=== PATIENT | male | born 1975 | race African-American/Black ===

== ENCOUNTER 2016-12-09 18:00 | Inpatient (IN) | payer OTHER ==
--- NOTE | 2016-12-09 19:44 | PDOC ---
History of Present Illness - General Chief Complaint: Pain, Acute Stated Complaint: LEFT LEG PAIN Time Seen by Provider: 12/09/16 19:32 History Source: Patient Exam Limitations: No Limitations - History of Present Illness Initial Comments: 12/09/16 21:28 Patient is a 41-year-old male with past medical history of brain tumor status post resection, ataxia, chronic cough presents to the emergency department today complaining of left knee pain. Patient states that today without warning he experienced sudden pain in his knee while walking. He states that he fell cause of the pain in his knee and has been unable to ambulate since. He is tried walking with a cane but feels very unsteady. Admits to pain in the knee, cannot bear weight. Denies fevers, chills, nausea, vomiting, and numbness or tingling. Past History - Travel Traveled outside of the country in the last 30 days: No Close contact w/someone who was outside of country & ill: No - Past Medical History Allergies/Adverse Reactions: Allergies Allergy/AdvReac Type Severity Reaction Status Date / Time amoxicillin [Amoxicillin] Allergy Unknown Verified 12/09/16 18:08 iodine Allergy Unknown Verified 12/09/16 18:08 Penicillins Allergy Unknown Verified 12/09/16 18:08 shellfish derived Allergy Verified 12/09/16 18:08 Home Medications: Ambulatory Orders Albuterol Sulfate [Proair Hfa -] 1 - 2 inh PO TID 10/13/14 Cyclobenzaprine HCl [Flexeril] 10 mg PO TID #30 tablet 10/13/14 Fluticasone/Salmeterol [Advair Hfa 45-21 Mcg Inhaler] 1 inh PO DAILY 10/13/14 Montelukast Na [Singulair -] 10 mg PO DAILY 10/13/14 Multivitamins [Multivit ([facility] Formulary)] 1 tab PO DAILY 10/13/14 Omeprazole [Prilosec] 20 mg PO DAILY 10/13/14 Ibuprofen 800 mg PO TID #21 tablet 12/09/16 Celecoxib [Celebrex] 100 mg PO BID #10 capsule 12/12/16 Omeprazole 20 mg PO DAILY #30 capsule. 12/12/16 Oxycodone HCl [Roxicodone -] 5 mg PO Q6H PRN #20 tablet MDD 6 12/12/16 Walker [Ultra-Light Rollator] 1 each ONCE #1 each 12/12/16 Asthma: Yes - Immunization History Immunization Up to Date: Yes - Suicide/Smoking/Psychosocial Hx Anxiety: No Suicidal Ideation: No Smoking History: Never smoked Have you smoked in the past 12 months: No Information on smoking cessation initiated: No Hx Alcohol Use: No Drug/Substance Use Hx: No Substance Use Type: None Review of Systems - Review of Systems Able to Perform ROS?: Yes Is the patient limited Pashto proficient: No Constitutional: No: Chills, Fever, Malaise, Weakness Musculoskeletal: Yes: Joint Pain (L knee), Joint Swelling (L knee) Neurological: Yes: Pre-Existing Deficit (ataxia d/t old brain tumor (s/p removal )). No: Numbness, Paresthesia, Tingling, Weakness All Other Systems: Reviewed and Negative *Physical Exam - Vital Signs Last Vital Signs Temp Pulse Resp BP Pulse Ox 98.2 F 65 20 128/76 96 12/09/16 18:08 12/09/16 18:08 12/09/16 18:08 12/09/16 18:08 12/09/16 18:08 - Physical Exam Comments: 12/09/16 22:04 GENERAL: Well developed, well nourished. Awake and alert. Mild distress, sitting in wheel chair HEENT: Normocephalic, atraumatic. PERRLA, EOMI. No conjunctival pallor. Sclera are non- icteric. Moist mucous membranes. Oropharynx is clear. NECK: CARDIOVASCULAR: Regular rate and rhythm. No murmurs, rubs, or gallops. Distal pulses are 2+ and symmetric. PULMONARY: No evidence of respiratory distress. Lungs clear to auscultation bilaterally. No wheezing, rales or rhonchi. ABDOMINAL: Soft. Non-tender. Non-distended. No rebound or guarding. No organomegaly. Normoactive bowel sounds. MUSCULOSKELETAL L knee with mild swelling to the lateral and medial portions. TTP of the L lateral and medial knee. (+) slight laxity on anterior and posterior draw tests. (-) valgus and varus stress. Negative Holland tests. No bony deformities. ROM intact with L knee. Unable to ambulate on L leg d/t pain. No CVA tenderness. EXTREMITIES: No cyanosis. No clubbing. No edema. No calf tenderness. SKIN: Warm and dry. Normal capillary refill. No rashes. No jaundice. NEUROLOGICAL: Alert, awake, appropriate. Cranial nerves 2-12 intact. No deficits to light touch and temperature in face, upper extremities and lower extremities. No motor deficits in the in face, upper extremities and lower extremities. Normoreflexic in the upper and lower extremities. Normal speech. Toes are down- going bilaterally. Pt reports gait with ataxia to pre-existing condition; however, unable to ambulate d/t knee pain. PSYCHIATRIC: Cooperative. Good eye contact. Appropriate mood and affect. ED Treatment Course - LABORATORY CBC & Chemistry Diagram: 12/10/16 04:55 12/10/16 04:55 Medical Decision Making - Medical Decision Making 12/09/16 20:15 Patient is a 41-year-old male with past medical history of brain tumor status post resection, ataxia, chronic cough presents to the emergency department today complaining of left knee pain. We will order x-ray of the knee at this time to rule out fracture. Will give ibuprofen for pain and elevate the leg. Reevaluate 12/09/16 21:01 Wet read x-ray shows no fracture, normal spacing between the knee joint no evidence of osteoarthritis no avulsion fractures present. Given exam and x-ray findings most likely ligament damage. We'll refer to or so. We'll give knee brace and crutches. 12/09/16 21:26 Patient was tried with crutches however patient is unable to ambulate due to his pre-existing ataxia. He almost fell multiple times in the emergency department with crutches. He states he is unable to use crutches because of his condition. Will admit the patient due to unable to ambulate. Case is discussed with Barbara Madison NP, who will accept the patient in the back for admission. Patient is stable for transfer to the main ED. *DC/Admit/Observation/Transfer Diagnosis at time of Disposition: Unable to bear weight Strain of knee Qualifiers: Encounter type: initial encounter Laterality: left Qualified Code(s): S86.912A - Strain of unspecified muscle(s) and tendon(s) at lower leg level, left leg, initial encounter - Discharge Dispostion Condition at time of disposition: Good Admit: Yes - Prescriptions - Referrals - Patient Instructions
[2016-12-09] MEDS ORDERED: traMADol HCL 50 MG TABLET PO ONE (21:13)
[2016-12-09] MEDS ORDERED: IBUPROFEN 400 MG TABLET (FP) PO ONE (21:15)
[2016-12-09] MEDS: IBUPROFEN 400 MG TABLET (FP) PO ONE ×2 (21:16→21:17)
[2016-12-09] MEDS ORDERED: traMADol HCL 50 MG TABLET ONE (21:18)
[2016-12-09 22:27] LABS: BASOPHIL 0.9 % (0-2.0); EOSINOPHIL 1.7 % (0-4.5); MCH 29.7 pg (25.7-33.7); MCHC 34.1 g/dl (32.0-35.9); MEAN CELL VOLUME 87.2 fl (80-96); MEAN PLT VOLUME 10.4 fl (7.5-11.1); NEUTROPHILS 62.6 % (42.8-82.8); PLATELET COUNT 179 K/MM3 (134-434); RDW 13.8 % (11.9-15.9); WHITE BLOOD COUNT 8.1 K/mm3 (4.0-10.0)
[2016-12-09 22:50] LABS: ALBUMIN 3.9 g/dl (3.4-5.0); ALK PHOS 82 U/L (45-117); ANION GAP 7 (8-16); BILIRUBIN,TOTAL 0.5 mg/dL (0.2-1.0); CALCIUM 8.9 mg/dL (8.5-10.1); CO2 26 mmol/L (21-32); CREATININE 0.8 mg/dL (0.7-1.3); GLUCOSE,RANDOM 78 mg/dL (74-106); SGOT/AST 13 U/L (15-37); SGPT/ALT 18 U/L (12-78); TOT PROT 6.9 g/dl (6.4-8.2)
--- NOTE | 2016-12-09 23:40 | PDOC ---
*Physical Exam - Vital Signs Last Vital Signs Temp Pulse Resp BP Pulse Ox 98.2 F 65 20 128/76 96 12/09/16 18:08 12/09/16 18:08 12/09/16 18:08 12/09/16 18:08 12/09/16 18:08 ED Treatment Course - LABORATORY CBC & Chemistry Diagram: 12/10/16 04:55 12/10/16 04:55 - ADDITIONAL ORDERS Additional order review: Laboratory Results 12/09/16 22:22 Sodium 140 Potassium 3.7 Chloride 107 Carbon Dioxide 26 Anion Gap 7 L BUN 13 Creatinine 0.8 Creat Clearance w eGFR > 60 Random Glucose 78 Calcium 8.9 Total Bilirubin 0.5 AST 13 L ALT 18 Alkaline Phosphatase 82 Total Protein 6.9 Albumin 3.9 12/09/16 22:22 RBC 4.53 MCV 87.2 MCHC 34.1 RDW 13.8 MPV 10.4 Neutrophils % 62.6 Lymphocytes % 29.0 Monocytes % 5.8 Eosinophils % 1.7 Basophils % 0.9 - Medications Given in the ED: ED Medications Discontinued Medications Generic Name Dose Route Start Last Admin Trade Name Anivalq PRN Reason Stop Dose Admin Ibuprofen 800 mg 12/09/16 20:37 12/09/16 21:17 Motrin - PO 12/09/16 20:38 Not Given ONCE ONE Tramadol HCl 50 mg 12/09/16 21:13 12/09/16 21:20 Ultram - PO 12/09/16 21:14 50 mg ONCE ONE Administration Medical Decision Making - Medical Decision Making 12/10/16 01:44 patient for obs placement for PT evaluation and care management for safe discharge home. Patient signed out to Dr. De La O *DC/Admit/Observation/Transfer Diagnosis at time of Disposition: Unable to bear weight Strain of knee Qualifiers: Encounter type: initial encounter Laterality: left Qualified Code(s): S86.912A - Strain of unspecified muscle(s) and tendon(s) at lower leg level, left leg, initial encounter - Discharge Dispostion Condition at time of disposition: Good Admit: Yes - Prescriptions - Patient Instructions
[2016-12-10] MEDS ORDERED: KETOROLAC TROMETHAMINE 30 MG/1 ML VIAL IM ONE (01:43)
[2016-12-10] MEDS ORDERED: KETOROLAC TROMETHAMINE 30 MG/1 ML VIAL ONE (01:50)
[2016-12-10] MEDS ORDERED: ALBUTEROL SO4 18 GM HFA INHALER IH PRN ×3 (02:14→06:45)
--- NOTE | 2016-12-10 02:17 | HP ---
CHIEF COMPLAINT: " Left knee pain" PCP: Dr. Swanson Neurologist: Dr. Blair. HISTORY OF PRESENT ILLNESS: Patient is a 41 year old male with significant past medical history of Afia ataxia, Asthma, Benign brain tumor s/p resection, acid reflux presented to the ED with the chief complaint of left knee pain. As per the patient, he was apparently well until today; while walking back home from the grocery store, he heard a pop followed by severe excruciating pain in the left knee, 10/10 in intensity, felt like the knee was swinging to the left and right. He immediately called him PMD, was asked to get an X-ray of the knee. Patient dragged himself home, pain was unbearable, hence he called EMS and brought in to the ER for further evaluation. He had never experienced this symptoms before. No h/o trauma. Patient mentions that he was diagnosed with Afia Ataxia at age 30. Has been using a cane to walk since 2-3 years, normally wobbles while walking at baseline. Denies chest pain, sob, cough, palpitation, abdominal pain, nausea or vomiting. Bowel/Bladder habit normal. Sleep/Appetite normal. ER course was notable for: (1) Afebrile, hemodynamically stable. (2) X-ray of the knee-official read pending. (3) Tramadol, toradol, Motrin Recent Travel: None PAST MEDICAL HISTORY: Afia ataxia, Asthma, Benign brain tumor s/p resection, acid reflux PAST SURGICAL HISTORY: None Social History: Smoking: Former occasional smoker, quit 10 years ago Alcohol: Drinks socially Drugs: Denies Family History: Unknown Allergies amoxicillin [Amoxicillin] Allergy (Unknown, Verified 12/09/16 18:08) iodine Allergy (Unknown, Verified 12/09/16 18:08) Penicillins Allergy (Unknown, Verified 12/09/16 18:08) shellfish derived Allergy (Verified 12/09/16 18:08) HOME MEDICATIONS: Home Medications Medication Instructions Recorded Albuterol Sulfate [Proair Hfa -] 1 - 2 inh PO TID 10/13/14 Cyclobenzaprine HCl [Flexeril] 10 mg PO TID #30 tablet 10/13/14 Fluticasone/Salmeterol [Advair Hfa 1 inh PO DAILY 10/13/14 45-21 Mcg Inhaler] Montelukast Na [Singulair -] 10 mg PO DAILY 10/13/14 Multivitamins [Multivit ([facility] 1 tab PO DAILY 10/13/14 Formulary)] Omeprazole [Prilosec] 20 mg PO DAILY 10/13/14 Ibuprofen 800 mg PO TID #21 tablet 12/09/16 REVIEW OF SYSTEMS CONSTITUTIONAL: Absent: fever, chills, diaphoresis, generalized weakness, malaise, loss of appetite, weight change HEENT: Absent: rhinorrhea, nasal congestion, throat pain, throat swelling, difficulty swallowing, mouth swelling, ear pain, eye pain, visual changes CARDIOVASCULAR: Absent: chest pain, syncope, palpitations, irregular heart rate, lightheadedness , peripheral edema RESPIRATORY: Absent: cough, shortness of breath, dyspnea with exertion, orthopnea, wheezing, stridor, hemoptysis GASTROINTESTINAL: Absent: abdominal pain, abdominal distension, nausea, vomiting, diarrhea, constipation, melena, hematochezia GENITOURINARY: Absent: dysuria, frequency, urgency, hesitancy, hematuria, flank pain, genital pain MUSCULOSKELETAL: Present: Left knee pain Absent: myalgia, arthralgia, joint swelling, back pain, neck pain SKIN: Absent: rash, itching, pallor HEMATOLOGIC/IMMUNOLOGIC: Absent: easy bleeding, easy bruising, lymphadenopathy, frequent infections ENDOCRINE: Absent: unexplained weight gain, unexplained weight loss, heat intolerance, cold intolerance NEUROLOGIC: Absent: headache, focal weakness or paresthesias, dizziness, unsteady gait, seizure, mental status changes, bladder or bowel incontinence PSYCHIATRIC: Absent: anxiety, depression, suicidal or homicidal ideation, hallucinations. PHYSICAL EXAMINATION GENERAL: Young male, sitting comfortably in bed, Awake, alert, and fully oriented, in no acute distress. HEAD: Normal with no signs of trauma. EYES: EOM intact, no pallor or icterus. EARS, NOSE, THROAT: Ears normal. Moist mucous membranes. NECK: Supple. LUNGS: B/L breath sounds equal, clear to auscultation bilaterally. No wheezes, and no crackles. No accessory muscle use. HEART: Regular rate and rhythm, normal S1 and S2 with soft systolic murmur. ABDOMEN: Soft, nontender, not distended, normoactive bowel sounds, no guarding, no rebound, no masses. No hepatomegaly or splenomegaly. MUSCULOSKELETAL: Normal range of motion at all joints. No bony deformities or tenderness. No CVA tenderness. UPPER EXTREMITIES: 2+ pulses, warm, well-perfused. No cyanosis. No clubbing. No peripheral edema. RIGHT LOWER EXTREMITY: 2+ pulses, warm, well-perfused. No calf tenderness. No peripheral edema. LEFT LOWER EXTREMITY: No rashes ; no erythema or swelling of the left knee; no tenderness on palpation, ROM limited- pain during flexion. NEUROLOGICAL: No facial droop, power 5/5 in all extremities except the left lower ext due to pain; Cranial nerves II-XII intact. Normal speech- occasional stuttering. Gait not observed. PSYCHIATRIC: Cooperative. Good eye contact. Appropriate mood and affect. SKIN: Warm, dry, normal turgor, no rashes or lesions noted, normal capillary refill. ASSESSMENT/PLAN: Patient is a 41 year old male with significant past medical history of Afia ataxia, Asthma, Benign brain tumor s/p resection, acid reflux presented to the ED via EMS with the chief complaint of left knee pain admitted for further evaluation. # Left knee pain- r/o ligament injuries Sudden onset of left knee pain while walking home; felt like swinging of the left knee, no h/o trauma X-ray of left knee- official read pending Would consider MRI of the left knee to r/o ligament injuries. Orthopedics consult request Continue knee braces Its difficult for him to walk at home as he has multiple stairs, unable to use clutches due to ataxic gait as per the patient. Physical therapy # Asymptomatic bradycardia On admission, patients heart rate was 60-65 bpm. When patient was transferred from ER to [facility], he was found to be bradycardic to 40's. Patient denied chest pain, sob, cough, palpitation. Stat EKG was done which showed HR of 38, sinus bradycardia. After half an hour, he started complaining of chest pain, centrally located, 3/10 in intensity, non radiating. Plan: Stat troponins----> x1 negative, ECHO in the morning; Atropine if needed Continuous cardiac monitoring Needs a pacer at bed side Would consider a full cardiac work up, might need Pacer placement. [facility] but [facility] hence transferring the patient to ICU for close monitoring. # Asthma- not in exacerbation Saturation normal in RA Continue Albuterol, singulair # Afia ataxia at baseline # Acid reflux Continue omeprazole # FEN Not on any IV fluids, can tolerate PO. Electrolytes WNL Regular diet # Prophylaxis For DVT: On Heparin sq For GI: On Omeprazole # Code Status: Full Code # Dispo: Admitted in Med-Surg, Transfer to ICU. Duration of stay unknown. Illness, Investigation and Plan of care explained to the patient. He verbalized understanding. Case discussed with Dr. De La O. Visit type - Emergency Visit Emergency Visit: Yes ED Registration Date: 12/09/16 Care time: The patient presented to the Emergency Department on the above date and was hospitalized for further evaluation of their emergent condition. - New Patient This patient is new to me today: Yes Date on this admission: 12/09/16 - Critical Care Critical Care patient: No
[2016-12-10 04:08] VITALS: BMI 25.8
[2016-12-10 05:17] LABS: MCH 29.7 pg (25.7-33.7); MEAN CELL VOLUME 87.2 fl (80-96); MEAN PLT VOLUME 10.7 fl (7.5-11.1); PLATELET COUNT 160 K/MM3 (134-434); RDW 13.6 % (11.9-15.9)
[2016-12-10 05:41] LABS: ANION GAP 5 (8-16); CALCIUM 8.4 mg/dL (8.5-10.1); CO2 28 mmol/L (21-32); CREATININE 0.7 mg/dL (0.7-1.3); GLUCOSE,RANDOM 93 mg/dL (74-106); MAGNESIUM 2.2 mg/dL (1.8-2.4); PHOSPHOROUS 3.4 mg/dL (2.5-4.9)
[2016-12-10 05:43] LABS: CPK 287 IU/L (39-308); TROPONIN I < 0.02 ng/ml (0.00-0.05)
--- NOTE | 2016-12-10 05:46 | PN ---
Teaching Attending Note Name of Resident: Chloe Lacy ATTENDING PHYSICIAN STATEMENT I saw and evaluated the patient. I reviewed the resident's note and discussed the case with the resident. I agree with the resident's findings and plan as documented. 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 His knee became unstable. He was told by his PMD to come to ED to get an XR . Workup was negative but patient was not able to ambulate and was referred to medical team . Further questioning reveals that he is having mild sub sternal pressure x 3 hrs , no nausea, no vomiting , no prior episodes of chest pain . VS reveal sinus bradycardia @ 40 PMH : Friedrichs ataxia ( per records ) Asthma Benign brain tumor s/p resection? ( per patient ) acid reflux OBJECTIVE: Vital Signs Temperature 97.7 F 12/10/16 03:00 Pulse Rate 42 L 12/10/16 03:00 Respiratory Rate 16 12/10/16 03:00 Blood Pressure 125/77 12/10/16 03:00 O2 Sat by Pulse Oximetry (%) 100 12/10/16 03:00 LUNGS: B/L breath sounds equal, clear to auscultation bilaterally. No wheezes, and no crackles. No accessory muscle use. HEART: Regular rate and rhythm, normal S1 and S2 with soft systolic murmur. ABDOMEN: Soft, nontender, not distended, normoactive bowel sounds, no guarding, no rebound, no masses. No hepatomegaly or splenomegaly. MUSCULOSKELETAL: Normal range of motion at all joints. No bony deformities or tenderness. No CVA tenderness. UPPER EXTREMITIES: 2+ pulses, warm, well-perfused. No cyanosis. No clubbing. No peripheral edema. RIGHT LOWER EXTREMITY: 2+ pulses, warm, well-perfused. No calf tenderness. No peripheral edema. LEFT LOWER EXTREMITY: No rashes ; no erythema or swelling of the left knee; no tenderness on palpation, ROM limited- pain during flexion. NEUROLOGICAL: No facial droop, power 5/5 in all extremities except the left lower ext due to pain; Cranial nerves II-XII intact. Normal speech- occasional stuttering. Gait not observed. CBC, BMP 12/10/16 04:55 12/10/16 04:55 EKG - sinus bradycardia @ 38 ASSESSMENT AND PLAN: 1. Sinus Bradycardia - asymptomatic , however reports mild chest pressure now, this could be associated with underlying cardiomyopathy. - telemetry monitoring stat -bedside pacer and atropine - ECHO - cardiology evaluation 2. Left knee pain - possible ligamental injury , -will obtain PT/OT -imaging if remains non ambulatory 3. Chronic ataxia - progressive - PT/OT Will admit as an inpatient .
[2016-12-10] MEDS ORDERED: CYCLOBENZAPRINE HCL 10 MG TABLET (FP) PO SCH (06:00)
[2016-12-10] MEDS ORDERED: ATROPINE SULFATE 1 MG/10 ML DISP.SYRIN ONE (07:27)
--- NOTE | 2016-12-10 08:20 | PN ---
Physical Exam: SUBJECTIVE: Patient seen and examined by me this AM - Complaining of intermittent chest pain, drowsiness. No SOB, fever, cough, palpitations, LE edema, N/V, dysuria, constipation. Denies any other pain in other joints, rashes. - Informed his clinical data manager, Dr. Clemons, of his admission. - Pt denies ever being admitted to hospital for heart condition - Plan for transfer to med-surg floors for further management today. - HypoK in AM. Replete PO. OBJECTIVE: Vital Signs Intake & Output 12/07/16 12/08/16 12/09/16 12/10/16 23:59 23:59 23:59 23:59 Weight 88.451 kg 79.424 kg Period Temp Pulse Resp BP Sys/Kahn Pulse Ox Last 24 Hr 97.8 F 41 18 134/90 GENERAL: The patient is awake, alert, and fully oriented, in no acute distress. Drowsy. HEAD: Normal with no signs of trauma. EYES: PERRL, extraocular movements intact, sclera anicteric, conjunctiva clear. No ptosis. NECK: Trachea midline LUNGS: Breath sounds equal, clear to auscultation bilaterally, no wheezes, no crackles HEART: Distant heart sounds, bradycardia, S1, S2 without murmur, rub or gallop. ABDOMEN: Soft, nontender, nondistended, normoactive bowel sounds, no guarding, no rebound, no hepatosplenomegaly, no masses. EXTREMITIES: 2+ pulses, warm, well-perfused, no edema. NEUROLOGICAL: Cranial nerves II through XII grossly intact. Normal speech, occasional stuttering MSK: Limited motion at L knee joint. Immobilized with brace. Pain with movement per pt. No other joint pain. Skin: No rashes noted. Laboratory Results - last 24 hr CBCD CBC, BMP 12/10/16 04:55 12/10/16 04:55 WBC 7.0 K/mm3 (4.0-10.0) 12/10/16 04:55 RBC 4.22 M/mm3 (4.00-5.60) 12/10/16 04:55 Hgb 12.5 GM/dL (11.7-16.9) 12/10/16 04:55 Hct 36.8 % (35.4-49) 12/10/16 04:55 MCV 87.2 fl (80-96) 12/10/16 04:55 MCHC 34.0 g/dl (32.0-35.9) 12/10/16 04:55 RDW 13.6 % (11.9-15.9) 12/10/16 04:55 Plt Count 160 K/MM3 (134-434) 12/10/16 04:55 MPV 10.7 fl (7.5-11.1) 12/10/16 04:55 CMP Sodium 141 mmol/L (136-145) 12/10/16 04:55 Potassium 3.5 mmol/L (3.5-5.1) 12/10/16 04:55 Chloride 108 mmol/L (98-107) H 12/10/16 04:55 Carbon Dioxide 28 mmol/L (21-32) 12/10/16 04:55 Anion Gap 5 (8-16) L 12/10/16 04:55 BUN 13 mg/dL (7-18) 12/10/16 04:55 Creatinine 0.7 mg/dL (0.7-1.3) 12/10/16 04:55 Creat Clearance w eGFR > 60 (>60) 12/09/16 22:22 Calcium 8.4 mg/dL (8.5-10.1) L 12/10/16 04:55 Total Bilirubin 0.5 mg/dL (0.2-1.0) 12/09/16 22:22 AST 13 U/L (15-37) L 12/09/16 22:22 ALT 18 U/L (12-78) 12/09/16 22:22 Alkaline Phosphatase 82 U/L (45-117) 12/09/16 22:22 Total Protein 6.9 g/dl (6.4-8.2) 12/09/16 22:22 Albumin 3.9 g/dl (3.4-5.0) 12/09/16 22:22 12/09/16 12/09/16 12/10/16 22:22 22:22 04:55 WBC 8.1 7.0 RBC 4.53 4.22 Hgb 13.5 12.5 Hct 39.5 36.8 MCV 87.2 87.2 MCH 29.7 29.7 MCHC 34.1 34.0 RDW 13.8 13.6 Plt Count 179 160 MPV 10.4 10.7 Neutrophils % 62.6 Lymphocytes % 29.0 Monocytes % 5.8 Eosinophils % 1.7 Basophils % 0.9 Sodium 140 Potassium 3.7 Chloride 107 Carbon Dioxide 26 Anion Gap 7 L BUN 13 Creatinine 0.8 Creat Clearance w eGFR > 60 Random Glucose 78 Calcium 8.9 Phosphorus Magnesium Total Bilirubin 0.5 AST 13 L ALT 18 Alkaline Phosphatase 82 Creatine Kinase Creatine Kinase Index CK-MB (CK-2) Troponin I Total Protein 6.9 Albumin 3.9 12/10/16 04:55 WBC RBC Hgb Hct MCV MCH MCHC RDW Plt Count MPV Neutrophils % Lymphocytes % Monocytes % Eosinophils % Basophils % Sodium 141 Potassium 3.5 Chloride 108 H Carbon Dioxide 28 Anion Gap 5 L BUN 13 Creatinine 0.7 Creat Clearance w eGFR Random Glucose 93 Calcium 8.4 L Phosphorus 3.4 Magnesium 2.2 Total Bilirubin AST ALT Alkaline Phosphatase Creatine Kinase 287 Creatine Kinase Index 0.3 CK-MB (CK-2) < 1.000 Troponin I < 0.02 Total Protein Albumin Active Medications Generic Name Dose Route Start Last Admin Trade Name Freq PRN Reason Stop Dose Admin Albuterol Sulfate 1 puff 12/10/16 06:45 Ventolin Hfa Inhaler - IH Q8H PRN SHORT OF BREATH/WHEEZING Cyclobenzaprine HCl 10 mg 12/10/16 14:00 Flexeril - PO TID [facility] Heparin Sodium (Porcine) 5,000 unit 12/10/16 10:00 Heparin - SQ Q8H-IV JERI Montelukast Sodium 10 mg 12/10/16 10:00 Singulair - PO DAILY [facility] Multivitamins/Minerals/Vitamin C 1 tab 12/10/16 10:00 Tab-A-Vit - PO DAILY JERI Non-Formulary Medication 1 inh 12/10/16 10:00 Fluticasone/Salmeterol [Advair Hfa 45-21 Mcg Inhaler] PO DAILY [facility] Non-Formulary Medication 20 mg 12/10/16 10:00 Omeprazole Pediatric Solution PO DAILY JERI CXR: (12/10) - There is no evidence of airspace consolidation, pulmonary vascular congestion or pleural effusion. There is no definable pneumothorax. Normal size and contour of the cardiomediastinal silhouette. No abnormal deviation of the trachea. Knee XR (12/09) - No gross bone or soft tissue abnormality seen. ASSESSMENT/PLAN: PT is 41 yo m w/ PMH of Freidrich's ataxia, asthma, s/p resection of benign brain tumor who presented to ED w/ new onset 10/10 joint pain in left knee, now found to be bradycardic to 40s in ER, transferred to ICU due to no telemetry beds available. Trops, CK-MB negative to date, EKG w/ sinus bradycardia. Dr. Clemons contact regarding pt cardiology records; stated he would call back once he reviewed patient's chart. Bradycardia possibly due to high-dose of home flexeril dose (10mg TID), as has been noted to cause bradycardia, also consistent w/ patient's drowsiness. Plan for transfer to med-surg floors today , w/ pending ortho consult. #Neuro - Consider holding/decreasing home flexeril - Pain control PO - Consider u-tox #Cardiac - Dr. Clemons contact for prior cardiac hx, ekg - Repeat EKG ordered - Trops x2 negative, CK-mb neg - Cardiology consult - Echo unremarkable #Pulm -O2 2L NC PRN. Titrate to >94% - Continue home albuterol, singulair #MSK - Ortho consult - Knee brace - PT eval GI - Continue home PPI for GERD #FEN -Fluids: PO fluids -Electrolytes: Daily BMPs, Trend BUN/Cr -Nutrition: Renal diet #PPX -SubQ Heparin for DVT ppx -PPI for GI ppx #Dispo - Transfer to med-surg today for further management. Thierry Santamaria, PGY1 Plan discussed with attending, Dr. Sterling Visit type - Emergency Visit Emergency Visit: No - New Patient This patient is new to me today: Yes Date on this admission: 12/10/16 - Critical Care Critical Care patient: No Total Critical Care Time (in minutes): 25
[2016-12-10 09:15] LABS: THYROID STIMULATING HORMONE 0.86 uIU/ml (0.358-3.74)
--- NOTE | 2016-12-10 09:37 | EKG ---
Test Reason : Blood Pressure : / mmHG Vent. Rate : 038 BPM Atrial Rate : 038 BPM P-R Int : 178 ms QRS Dur : 104 ms QT Int : 450 ms P-R-T Axes : 067 052 037 degrees QTc Int : 357 ms MARKED SINUS BRADYCARDIA NONSPECIFIC ST ABNORMALITY ABNORMAL ECG NO PREVIOUS ECGS AVAILABLE Confirmed by ALDO MICHAELS MD ([id number]) on 12/10/2016 9:36:53 AM Referred By: Confirmed By:ALDO MICHAELS MD
[2016-12-10] MEDS ORDERED: PATIENT'S OWN MEDICATION (NON-FORMULARY) (Fluticasone/Salmeterol [Advair Hfa 45-21 Mcg Inh PO SCH (10:00)
[2016-12-10] MEDS ORDERED: HEPARIN NA (PORCINE) 5,000 UNITS/ML 1ML VIAL SQ SCH (10:00)
[2016-12-10] MEDS ORDERED: MONTELUKAST NA 10 MG TABLET PO SCH (10:00)
[2016-12-10] MEDS ORDERED: MULTIVITAMINS (DAILY MVI) TABLET (FP) PO SCH (10:00)
[2016-12-10] MEDS ORDERED: PATIENT'S OWN MEDICATION (NON-FORMULARY) (Omeprazole Pediatric Solution 20 MG) PO SCH (10:00)
[2016-12-10] MEDS: MULTIVITAMINS (DAILY MVI) TABLET (FP) PO SCH (10:48)
[2016-12-10] MEDS: HEPARIN NA (PORCINE) 5,000 UNITS/ML 1ML VIAL SQ SCH ×2 (10:48→17:26)
[2016-12-10] MEDS: MONTELUKAST NA 10 MG TABLET PO SCH (10:48)
--- NOTE | 2016-12-10 11:15 | CON.CARD ---
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 Pt came to ER for cp. While here found to have sinus kaylene so admitted to tele. Pt denies hx hrt dz. Does not recall being told of slow hr in past. He ambulates with cane due to ataxia but denies any sob/cp/fatigue limiting factors. No cp, sob, palps, dizzy , loc, pnd, orthopnea, le edema. pmh: per hpi psh: nc social: ex tob fam: no premature cad, scd ros: per hpi; no nvd, cough, mazariegos, vision changes, gib, hematuria, dysuria, wt loss meds: Home Medications Medication Instructions Recorded Albuterol Sulfate [Proair Hfa -] 1 - 2 inh PO TID 10/13/14 Cyclobenzaprine HCl [Flexeril] 10 mg PO TID #30 tablet 10/13/14 Fluticasone/Salmeterol [Advair Hfa 1 inh PO DAILY 10/13/14 45-21 Mcg Inhaler] Montelukast Na [Singulair -] 10 mg PO DAILY 10/13/14 Multivitamins [Multivit ([facility] 1 tab PO DAILY 10/13/14 Formulary)] Omeprazole [Prilosec] 20 mg PO DAILY 10/13/14 Ibuprofen 800 mg PO TID #21 tablet 12/09/16 pe: Vital Signs Period Temp Pulse Resp BP Sys/Kahn Pulse Ox Last 24 Hr 97.7 F-98.2 F 41-65 16-20 120-146/76-96 96-100 nad no jvd rrr s1s2 no mrg cta bl nl eff aaox3 no le e/c/c abd nt nd pos bs no jaundice diaphoresis pos dp pt no carotid bruits Laboratory Last Values WBC 7.0 K/mm3 (4.0-10.0) 12/10/16 04:55 RBC 4.22 M/mm3 (4.00-5.60) 12/10/16 04:55 Hgb 12.5 GM/dL (11.7-16.9) 12/10/16 04:55 Hct 36.8 % (35.4-49) 12/10/16 04:55 MCV 87.2 fl (80-96) 12/10/16 04:55 MCH 29.7 pg (25.7-33.7) 12/10/16 04:55 MCHC 34.0 g/dl (32.0-35.9) 12/10/16 04:55 RDW 13.6 % (11.9-15.9) 12/10/16 04:55 Plt Count 160 K/MM3 (134-434) 12/10/16 04:55 MPV 10.7 fl (7.5-11.1) 12/10/16 04:55 Neutrophils % 62.6 % (42.8-82.8) 12/09/16 22:22 Lymphocytes % 29.0 % (8-40) 12/09/16 22:22 Monocytes % 5.8 % (3.8-10.2) 12/09/16 22:22 Eosinophils % 1.7 % (0-4.5) 12/09/16 22:22 Basophils % 0.9 % (0-2.0) 12/09/16 22:22 Sodium 141 mmol/L (136-145) 12/10/16 04:55 Potassium 3.5 mmol/L (3.5-5.1) 12/10/16 04:55 Chloride 108 mmol/L (98-107) H 12/10/16 04:55 Carbon Dioxide 28 mmol/L (21-32) 12/10/16 04:55 Anion Gap 5 (8-16) L 12/10/16 04:55 BUN 13 mg/dL (7-18) 12/10/16 04:55 Creatinine 0.7 mg/dL (0.7-1.3) 12/10/16 04:55 Creat Clearance w eGFR > 60 (>60) 12/09/16 22:22 Random Glucose 93 mg/dL (74-106) 12/10/16 04:55 Hemoglobin A1c % 5.2 % (4.8-6.0) 12/10/16 07:00 Calcium 8.4 mg/dL (8.5-10.1) L 12/10/16 04:55 Phosphorus 3.4 mg/dL (2.5-4.9) 12/10/16 04:55 Magnesium 2.2 mg/dL (1.8-2.4) 12/10/16 04:55 Total Bilirubin 0.5 mg/dL (0.2-1.0) 12/09/16 22:22 AST 13 U/L (15-37) L 12/09/16 22:22 ALT 18 U/L (12-78) 12/09/16 22:22 Alkaline Phosphatase 82 U/L (45-117) 12/09/16 22:22 Creatine Kinase 287 IU/L (39-308) 12/10/16 04:55 Creatine Kinase Index 0.3 % (0.0-5.0) 12/10/16 04:55 CK-MB (CK-2) < 1.000 ng/mL (0.5-3.6) 12/10/16 04:55 Troponin I < 0.02 ng/ml (0.00-0.05) 12/10/16 04:55 Total Protein 6.9 g/dl (6.4-8.2) 12/09/16 22:22 Albumin 3.9 g/dl (3.4-5.0) 12/09/16 22:22 TSH Cancelled 12/10/16 08:20 tele: sinus kaylene in 40s, no pathologic bradyarrhythmias or pauses ecg 12/10/16: sr 38, nl intervals, no ischemic changes cxr: clear lungs a/p: 41 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 sinus bradycardia: -appears to be asymptomatic sinus kaylene -tsh wnl -no pathologic bradyarrhythmias or pauses on tele -can check echo -given his ataxia/cane ambulation would be difficult to assess chronotropic response with ETT, however with minimal exercise in bed his HR quickly rises to 60s so likely has adequate HR response to exercise -avoid meds that cause bradycardia
[2016-12-10 12:56] LABS: CPK 295 IU/L (39-308); TROPONIN I < 0.02 ng/ml (0.00-0.05)
[2016-12-10] MEDS ORDERED: ALBUTEROL SO4 0.083% IH SOL 2.5 MG/3 ML VIAL.NEB. NEB PRN (13:02)
--- NOTE | 2016-12-10 13:42 | PN ---
Teaching Attending Note Name of Resident: Thierry Santamaria ATTENDING PHYSICIAN STATEMENT I saw and evaluated the patient. I reviewed the resident's note and discussed the case with the resident. I agree with the resident's findings and plan as documented. SUBJECTIVE: Patient seen and examined in the ICU. Awake and alert. Denies CP or SOB. Still with some discomfort in the Right knee (xray is normal). Intake & Output 12/07/16 12/08/16 12/09/16 12/10/16 23:59 23:59 23:59 23:59 Weight 195 lb 175 lb 1.6 oz Last Vital Signs Temp Pulse Resp BP Pulse Ox 97.9 F 45 L 16 121/85 100 12/10/16 10:00 12/10/16 12:20 12/10/16 12:20 12/10/16 12:20 12/10/16 03:00 Active Medications Albuterol Sulfate (Ventolin 0.083% Nebulizer Soln -) 1 amp NEB Q8H PRN PRN Reason: SHORT OF BREATH/WHEEZING Cyclobenzaprine HCl (Flexeril -) 10 mg PO TID JERI Heparin Sodium (Porcine) (Heparin -) 5,000 unit SQ Q8H-IV JERI Last Admin: 12/10/16 10:48 Dose: 5,000 unit Montelukast Sodium (Singulair -) 10 mg PO DAILY JERI Last Admin: 12/10/16 10:48 Dose: 10 mg Multivitamins/Minerals/Vitamin C (Tab-A-Vit -) 1 tab PO DAILY JERI Last Admin: 12/10/16 10:48 Dose: 1 tab Non-Formulary Medication (Fluticasone/Salmeterol [Advair Hfa 45-21 Mcg Inhaler] ) 1 inh PO DAILY JERI Non-Formulary Medication (Omeprazole Pediatric Solution) 20 mg PO DAILY JERI GENERAL: Awake, alert, and fully oriented, NAD HEAD: Normal with no signs of trauma. EYES: EOM intact, no pallor or icterus. EARS, NOSE, THROAT: Ears normal. Moist mucous membranes. NECK: Supple. LUNGS: Clear. No wheezes, and no crackles. No accessory muscle use. HEART: Regular rate and rhythm, normal S1 and S2 with soft systolic murmur. ABDOMEN: Soft, nontender, not distended, normoactive bowel sounds, no guarding, no rebound, no masses. No hepatomegaly or splenomegaly. MUSCULOSKELETAL: Normal range of motion at all joints. No bony deformities or tenderness. No CVA tenderness. UPPER EXTREMITIES: 2+ pulses, warm, well-perfused. No cyanosis. No clubbing. No peripheral edema. RIGHT LOWER EXTREMITY: 2+ pulses, warm, well-perfused. No calf tenderness. No peripheral edema. LEFT LOWER EXTREMITY: No rashes ; no erythema or swelling of the left knee; no tenderness on palpation, ROM limited- pain during flexion. NEUROLOGICAL: Non-focal, Normal speech- occasional stuttering. Gait not observed. PSYCHIATRIC: Cooperative. Good eye contact. Appropriate mood and affect. SKIN: Warm, dry, normal turgor, no rashes or lesions noted, normal capillary refill. Laboratory Results - last 24 hr 12/09/16 12/09/16 12/10/16 22:22 22:22 04:55 WBC 8.1 7.0 RBC 4.53 4.22 Hgb 13.5 12.5 Hct 39.5 36.8 MCV 87.2 87.2 MCH 29.7 29.7 MCHC 34.1 34.0 RDW 13.8 13.6 Plt Count 179 160 MPV 10.4 10.7 Neutrophils % 62.6 Lymphocytes % 29.0 Monocytes % 5.8 Eosinophils % 1.7 Basophils % 0.9 Sodium 140 Potassium 3.7 Chloride 107 Carbon Dioxide 26 Anion Gap 7 L BUN 13 Creatinine 0.8 Creat Clearance w eGFR > 60 Random Glucose 78 Hemoglobin A1c % Calcium 8.9 Phosphorus Magnesium Total Bilirubin 0.5 AST 13 L ALT 18 Alkaline Phosphatase 82 Creatine Kinase Creatine Kinase Index CK-MB (CK-2) Troponin I Total Protein 6.9 Albumin 3.9 TSH 12/10/16 12/10/16 12/10/16 04:55 07:00 08:20 WBC RBC Hgb Hct MCV MCH MCHC RDW Plt Count MPV Neutrophils % Lymphocytes % Monocytes % Eosinophils % Basophils % Sodium 141 Potassium 3.5 Chloride 108 H Carbon Dioxide 28 Anion Gap 5 L BUN 13 Creatinine 0.7 Creat Clearance w eGFR Random Glucose 93 Hemoglobin A1c % 5.2 Calcium 8.4 L Phosphorus 3.4 Magnesium 2.2 Total Bilirubin AST ALT Alkaline Phosphatase Creatine Kinase 287 Creatine Kinase Index 0.3 CK-MB (CK-2) < 1.000 Troponin I < 0.02 Total Protein Albumin TSH 0.86 Cancelled 12/10/16 12/10/16 12:00 12:00 WBC RBC Hgb Hct MCV MCH MCHC RDW Plt Count MPV Neutrophils % Lymphocytes % Monocytes % Eosinophils % Basophils % Sodium Potassium Chloride Carbon Dioxide Anion Gap BUN Creatinine Creat Clearance w eGFR Random Glucose Hemoglobin A1c % Calcium Phosphorus Magnesium Total Bilirubin AST ALT Alkaline Phosphatase Creatine Kinase 295 Creatine Kinase Index 0.3 CK-MB (CK-2) < 1.000 Troponin I < 0.02 Cancelled Total Protein Albumin TSH IMP: Asymptomatic Bradycardia -> (?) related to Flexeril Asthma Afia Ataxia GERD PLAN: Cardiology consult O2 as needed Pain control PO as tolerated Get old EKG from chef kitchen manager office Dr Sterling Critical care time spent in reviewing chart, evaluating patient and formulating plan - 35 minutes.
--- NOTE | 2016-12-10 13:48 | PN ---
Physical Exam: SUBJECTIVE: Patient seen and examined at bedside. Patient has no new complaints and is resting comfortably in bed. OBJECTIVE: Vital Signs Period Temp Pulse Resp BP Sys/Kahn Pulse Ox Last 24 Hr 97.8 F-97.9 F 41-52 16-18 121-146/85-96 GENERAL: The patient is awake, alert, and fully oriented, in no acute distress. HEAD: Normal with no signs of trauma. EYES: extraocular movements intact, sclera anicteric, conjunctiva clear. No ptosis. NECK: Trachea midline, full range of motion, supple. LUNGS: Breath sounds equal, clear to auscultation bilaterally, no wheezes, no crackles, no accessory muscle use. HEART: Bradycardic, Regular rhythm, S1, S2 without murmur, rub or gallop. ABDOMEN: Soft, nontender, nondistended, normoactive bowel sounds, no guarding, no rebound. EXTREMITIES: 2+ pulses, warm, well-perfused, no edema. NEUROLOGICAL: Cranial nerves II through X grossly intact. Normal speech, gait not observed. PSYCH: Normal mood, normal affect. SKIN: Warm, dry, normal turgor, no rashes or lesions noted Laboratory Results - last 24 hr 12/10/16 12/10/16 12/10/16 07:00 08:20 12:00 Hemoglobin A1c % 5.2 Creatine Kinase 295 Troponin I < 0.02 TSH Cancelled 12/10/16 12:00 Hemoglobin A1c % Creatine Kinase Troponin I Cancelled TSH Active Medications Generic Name Dose Route Start Last Admin Trade Name Freq PRN Reason Stop Dose Admin Albuterol Sulfate 1 amp 12/10/16 13:02 Ventolin 0.083% Nebulizer Soln - NEB Q8H PRN SHORT OF BREATH/WHEEZING Cyclobenzaprine HCl 10 mg 12/10/16 14:00 Flexeril - PO TID JERI Heparin Sodium (Porcine) 5,000 unit 12/10/16 10:00 12/10/16 10:48 Heparin - SQ 5,000 unit Q8H-IV JERI Administration Montelukast Sodium 10 mg 12/10/16 10:00 12/10/16 10:48 Singulair - PO 10 mg DAILY JERI Administration Multivitamins/Minerals/Vitamin C 1 tab 12/10/16 10:00 12/10/16 10:48 Tab-A-Vit - PO 1 tab DAILY JERI Administration Non-Formulary Medication 1 inh 12/10/16 10:00 Fluticasone/Salmeterol [Advair Hfa 45-21 Mcg Inhaler] PO DAILY JERI Non-Formulary Medication 20 mg 12/10/16 10:00 Omeprazole Pediatric Solution PO DAILY JERI ASSESSMENT/PLAN: Patient is a 41 year old male with significant past medical history of Afia ataxia, Asthma, Benign brain tumor s/p resection, acid reflux presented to the ED via EMS with the chief complaint of left knee pain admitted for further evaluation. # Left knee pain 2/2 sprain vs ligament injury -Patient pain free at rest, pain on left knee flexing. -XR left knee: negative for fracture -Orthopedics consulted -knee brace -physical therapy eval # Asymptomatic bradycardia 2/2 cardiomyopathy vs physiologic baseline -heart rate was 60-65 on admission. -upon transfer to [facility], he was found to be bradycardic to 40's. -Stat EKG shows HR of 38 and sinus kaylene. -chest pain resolved -troponins negative x2 -Atropine PRN symptoms -echo WNL -cardio consult: monitor and avoid meds which cause kaylene -patient meds reviewed; none associated with kaylene -Dr. 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 Blair office contacted for medical records # Acid reflux Continue omeprazole # FEN Not on any IV fluids, can tolerate PO. Electrolytes WNL Regular diet # Prophylaxis -Heparin sq 5kU TID -On home Omeprazole #dispo -patient admitted for ortho consult and bradycardia workup Visit type - Emergency Visit Emergency Visit: Yes ED Registration Date: 12/10/16 Care time: The patient presented to the Emergency Department on the above date and was hospitalized for further evaluation of their emergent condition. - New Patient This patient is new to me today: Yes Date on this admission: 12/10/16 - Critical Care Critical Care patient: Yes Total Critical Care Time (in minutes): 35 Critical Care Statement: The care of this patient involved high complexity decision making to prevent further life threatening deterioration of the patient 's condition and/or to evaluate & treat vital organ system(s) failure or risk of failure.
[2016-12-10] MEDS ORDERED: POTASSIUM CHLORIDE TABS 20 MEQ TABLET.ER (FP) PO ONE (14:15)
--- NOTE | 2016-12-10 14:25 | PN ---
Teaching Attending Note Name of Resident: Fabiano Olsen ATTENDING PHYSICIAN STATEMENT I saw and evaluated the patient. I reviewed the resident's note and discussed the case with the resident. I agree with the resident's findings and plan as documented. SUBJECTIVE:c/o L knee pain which started suddenly. denies falling or trauma to his leg. states he had mild chest pressure in the evening substernal and radiating to the Right of his chest, no assoc symptoms. denies CP, palpitations , dizzyness, blurred vision, lethargy. has never been told he has slow HR. had NMST done 2 years ago for CP and was told it was negative, never followed up with salon assistant after that. OBJECTIVE: Last Vital Signs Temp Pulse Resp BP Pulse Ox 97.7 F 46 L 16 121/85 100 12/10/16 13:49 12/10/16 13:49 12/10/16 13:49 12/10/16 13:49 12/10/16 11:00 General NAD CV S1 S2 slow, no murmur,rub.gallop Lungs CTA B/L no wheezing/rales/rhocnhi Extremites L knee in brace, no effusion, non tender. unable to move it due to brace ASSESSMENT AND PLAN: 41yo M with PMH Friedrichs ataxia, brain tumor s/p resection presented with sudden onset L knee pain and found to be bradycardic 1. Asymptomatic bradycardia- lowest HR on monitor 42. on mild exertion HR increased to 78. no symptoms at all. can likely be due to Friedrichs ataxia. trend cardiac enzymes Q6H. check TSH. echo pending. cardio eval. obtain old EKG to compare and obtain official report of NMST. no intervention likely required 2. L knee pain- concern for torn ligament. unable to ambulate on crutches due to ataxia. awaiting official read on xr. consult ortho for further intervention. may require MRI imaging. cont leg brace. PT eval 3. Friedrichs ataxia 4. Brain tumor s/p resection
[2016-12-10] MEDS: CYCLOBENZAPRINE HCL 10 MG TABLET (FP) PO SCH ×2 (14:59→22:46)
[2016-12-10] MEDS ORDERED: FLU VACCINE QUAD 60 MCG/0.5 ML (MDV 17-18) IM ONE (15:00)
[2016-12-11] MEDS: HEPARIN NA (PORCINE) 5,000 UNITS/ML 1ML VIAL SQ SCH ×3 (01:17→22:20)
[2016-12-11] MEDS: CYCLOBENZAPRINE HCL 10 MG TABLET (FP) PO SCH ×3 (06:17→22:21)
--- NOTE | 2016-12-11 07:56 | PN ---
Teaching Attending Note Name of Resident: Marcelo Lynch ATTENDING PHYSICIAN STATEMENT I saw and evaluated the patient. I reviewed the resident's note and discussed the case with the resident. I agree with the resident's findings and plan as documented. SUBJECTIVE: His knee pain is improved and he understands plan for ortho evaluation today. OBJECTIVE: Last Vital Signs Temp Pulse Resp BP Pulse Ox 98.1 F 51 L 18 119/60 99 12/11/16 06:00 12/11/16 06:00 12/11/16 06:00 12/11/16 06:00 12/10/16 21:00 Exam pending ASSESSMENT AND PLAN: The patient is a 41 year old male with a significant past medical history of Friedrichs ataxia, brain tumor s/p resection, who is HD# 3 for knee strain and asymptomatic bradycardia. # Asymptomatic bradycardia Resting hear rate vincent is mid 40's It increases with exertion Likely be due to Friedrichs ataxia and suspect this is baseline Appreciate cardiology input Will add lyme titers Will verify with his outpatient web content developer TSH was normal TTE was unremarkable Enzymes trended negative # L knee pain Possible ligamentous injury Ortho consult pending # Disposition Anticipate discharge today after ortho consult and verification of chronic bradycardia See resident note for full details
--- NOTE | 2016-12-11 08:35 | PN ---
Progress Note, Physician Chief Complaint: bradycardia History of Present Illness: no dizzy, syncope no cp, sob - Current Medication List Current Medications: Active Medications Albuterol Sulfate (Ventolin 0.083% Nebulizer Soln -) 1 amp NEB Q8H PRN PRN Reason: SHORT OF BREATH/WHEEZING Cyclobenzaprine HCl (Flexeril -) 10 mg PO TID [facility] Last Admin: 12/11/16 06:17 Dose: 10 mg Heparin Sodium (Porcine) (Heparin -) 5,000 unit SQ Q8H-IV JERI Last Admin: 12/11/16 01:17 Dose: 5,000 unit Montelukast Sodium (Singulair -) 10 mg PO DAILY [facility] Last Admin: 12/10/16 10:48 Dose: 10 mg Multivitamins/Minerals/Vitamin C (Tab-A-Vit -) 1 tab PO DAILY [facility] Last Admin: 12/10/16 10:48 Dose: 1 tab Non-Formulary Medication (Fluticasone/Salmeterol [Advair Hfa 45-21 Mcg Inhaler] ) 1 inh PO DAILY [facility] Pantoprazole Sodium (Protonix -) 20 mg PO DAILY [facility] - Objective Vital Signs: Vital Signs Temperature 98.1 F 12/11/16 06:00 Pulse Rate 51 L 12/11/16 06:00 Respiratory Rate 18 12/11/16 06:00 Blood Pressure 119/60 12/11/16 06:00 O2 Sat by Pulse Oximetry (%) 99 12/10/16 21:00 Constitutional: Yes: Well Nourished, No Distress, Calm Cardiovascular: Yes: Regular Rate and Rhythm, S1, S2. No: Gallop, Murmur Respiratory: Yes: Regular, CTA Bilaterally. No: Accessory Muscle Use, Rales, Wheezes Extremities: No: Cold Edema: No Neurological: Yes: Alert. No: Seizure Psychiatric: No: Agitated - ....Imaging EKG: Other (tele: NSR with sinus kaylene briefly 48, mostly 50s-60s) Assessment/Plan ecg 12/10/16: sr 38, nl intervals, no ischemic changes cxr: clear lungs Echo 12/10/16: nl LVSF. nl RV. mild MR/TR a/p: 41 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 sinus bradycardia: -incidentally noted on tele with minimum HR in 38-40s -he has had no sx's attributable to this, and no pathologic bradyarrhythmias or pauses on tele -with minimal exercise in bed his HR quickly rises to 60s, c/w chronotropic competence -echo WNL -TSH normal -check lyme titers (pt denies h/o tick bite) -no ongoing indication for telemetry monitoring in absence of change in sx status--ok for routine VS monitoring on med/surg floor
[2016-12-11] MEDS ORDERED: ACETAMINOPHEN 325 MG TABLET (FP) PO PRN ×2 (09:51→17:48)
[2016-12-11] MEDS ORDERED: oxyCODONE HCL 5 MG TABLET PO PRN ×2 (09:51→17:48)
[2016-12-11] MEDS ORDERED: CELECOXIB 100 MG CAPSULE PO SCH (10:00)
[2016-12-11] MEDS ORDERED: PANTOPRAZOLE 20 MG TABLET (FP) PO SCH ×2 (10:00)
--- NOTE | 2016-12-11 10:01 | PN ---
Physical Exam: SUBJECTIVE: Patient seen and examined at bedside. No events overnight. Patient states that his pain has not improved since admission. no other complaints. OBJECTIVE: Vital Signs Period Temp Pulse Resp BP Sys/Kahn Pulse Ox Last 24 Hr 97.7 F-98.1 F 45-84 16-18 119-149/60-88 98-100 GENERAL: The patient is awake, alert, and fully oriented, in no acute distress. HEAD: Normal with no signs of trauma. EYES: extraocular movements intact, sclera anicteric, conjunctiva clear. No ptosis. NECK: Trachea midline, full range of motion, supple. LUNGS: Breath sounds equal, clear to auscultation bilaterally, no wheezes, no crackles, no accessory muscle use. HEART: Regular rate and rhythm, S1, S2 without murmur, rub or gallop. ABDOMEN: Soft, nontender, nondistended, normoactive bowel sounds, no guarding, no rebound, no hepatosplenomegaly, no masses. EXTREMITIES: 2+ pulses, warm, well-perfused, no edema. NEUROLOGICAL: Cranial nerves II through X grossly intact. Normal speech, gait not observed. PSYCH: Normal mood, normal affect. SKIN: Warm, dry, normal turgor, no rashes or lesions noted Laboratory Results - last 24 hr 12/10/16 12/10/16 12:00 12:00 Creatine Kinase 295 Creatine Kinase Index 0.3 CK-MB (CK-2) < 1.000 Troponin I < 0.02 Cancelled Active Medications Generic Name Dose Route Start Last Admin Trade Name Freq PRN Reason Stop Dose Admin Acetaminophen 325 mg 12/11/16 09:51 Tylenol - PO Q6H PRN PAIN Albuterol Sulfate 1 amp 12/10/16 13:02 Ventolin 0.083% Nebulizer Soln - NEB Q8H PRN SHORT OF BREATH/WHEEZING Celecoxib 100 mg 12/11/16 10:00 Celebrex - PO BID JERI Cyclobenzaprine HCl 10 mg 12/10/16 14:00 12/11/16 06:17 Flexeril - PO 10 mg TID JERI Administration Heparin Sodium (Porcine) 5,000 unit 12/10/16 10:00 12/11/16 01:17 Heparin - SQ 5,000 unit Q8H-IV JERI Administration Montelukast Sodium 10 mg 12/10/16 10:00 12/10/16 10:48 Singulair - PO 10 mg DAILY JERI Administration Multivitamins/Minerals/Vitamin C 1 tab 12/10/16 10:00 12/10/16 10:48 Tab-A-Vit - PO 1 tab DAILY JERI Administration Non-Formulary Medication 1 inh 12/10/16 10:00 Fluticasone/Salmeterol [Advair Hfa 45-21 Mcg Inhaler] PO DAILY JERI Oxycodone HCl 5 mg 12/11/16 09:51 Roxicodone - PO Q6H PRN PAIN Oxycodone/Acetaminophen 1 combo 12/11/16 09:26 Percocet 5/325 - PO Q6H PRN PAIN Pantoprazole Sodium 20 mg 12/11/16 10:00 Protonix - PO BID JERI ASSESSMENT/PLAN: Patient is a 41 year old male with significant past medical history of Afia ataxia, Asthma, Benign brain tumor s/p resection, acid reflux presented to the ED via EMS with the chief complaint of left knee pain admitted for further evaluation. # Left knee pain 2/2 sprain vs ligament injury -Patient pain free at rest, pain on left knee flexing. -XR left knee: negative for fracture -Orthopedics consulted; awaiting recs -knee brace -physical therapy eval -celebrex 100mg BID -percocet Q6 PRN pain # Asymptomatic bradycardia 2/2 cardiomyopathy vs physiologic baseline -heart rate was 60-65 on admission. -upon transfer to Med-Surg, he was found to be bradycardic to 40's. -Stat EKG shows HR of 38 and sinus kaylene. -chest pain resolved -troponins negative x2 -Atropine PRN symptoms -echo WNL -cardio consult: monitor and avoid meds which cause kaylene -patient meds reviewed; none associated with kaylene -Dr. 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 Blair office contacted for medical records # Acid reflux -increase pantoprazole to BID as patient now on celebrex # FEN -No fluids indicated at this time -Electrolytes WNL -Regular diet # Prophylaxis -Heparin sq 5kU TID -Pantoprazole BID #dispo -patient admitted to observation for ortho consult and bradycardia workup. Anticipate possible discharge after ortho eval and cardio clearance. Problem List - Problems (1) Strain of knee Code(s): S86.919A - STRAIN OF UNSP MUSC/TEND AT LOWER LEG LEVEL, UNSP LEG, INIT Qualifiers: Encounter type: initial encounter Laterality: left Qualified Code(s ): S86.912A - Strain of unspecified muscle(s) and tendon(s) at lower leg level, left leg, initial encounter (2) Asthma Code(s): J45.909 - UNSPECIFIED ASTHMA, UNCOMPLICATED (3) Bradycardia Code(s): R00.1 - BRADYCARDIA, UNSPECIFIED (4) Paraparesis of both lower limbs Code(s): G82.20 - PARAPLEGIA, UNSPECIFIED (5) Friedreich ataxia Code(s): G11.1 - EARLY-ONSET CEREBELLAR ATAXIA (6) GERD (gastroesophageal reflux disease) Code(s): K21.9 - GASTRO-ESOPHAGEAL REFLUX DISEASE WITHOUT ESOPHAGITIS Visit type - Emergency Visit Emergency Visit: Yes ED Registration Date: 12/09/16 Care time: The patient presented to the Emergency Department on the above date and was hospitalized for further evaluation of their emergent condition. - New Patient This patient is new to me today: No - Critical Care Critical Care patient: No
[2016-12-11] MEDS ORDERED: PT OWN MED DRAWER 7, Y5N ONE ×3 (11:09→22:11)
[2016-12-11] MEDS: MULTIVITAMINS (DAILY MVI) TABLET (FP) PO SCH (11:17)
[2016-12-11] MEDS: MONTELUKAST NA 10 MG TABLET PO SCH (11:18)
--- NOTE | 2016-12-11 11:34 | CONSULT ---
Consult Consult Specialty:: orthopedics - History of Present Illness Chief Complaint: left knee pain History of Present Illness: 41 y/o male c/o of left knee pain which began 2 days ago while he was walking. He denies any injury or trauma and states the pain began suddenly. He was okay at first and was able to walk home but the pain continued to get worse and he went to the ER where he had an x-ray. He was going to be discharged home but was unable to ambulate safely with crutches and was admitted. 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 He denies any prior injuries or problems with the left knee. The pain is worse with bending and better with rest. No other associated, aggravating or relieving factors. - History Source Limitations to Obtaining History: No Limitations - Alcohol/Substance Use Hx Alcohol Use: No - Smoking History Smoking history: Former smoker Have you smoked in the past 12 months: No If you are a former smoker, when did you quit?: 10 years ago Home Medications - Allergies Allergies/Adverse Reactions: Allergies Allergy/AdvReac Type Severity Reaction Status Date / Time amoxicillin [Amoxicillin] Allergy Unknown Verified 12/09/16 18:08 iodine Allergy Unknown Verified 12/09/16 18:08 Penicillins Allergy Unknown Verified 12/09/16 18:08 shellfish derived Allergy Verified 12/09/16 18:08 - Home Medications Home Medications: Ambulatory Orders Albuterol Sulfate [Proair Hfa -] 1 - 2 inh PO TID 10/13/14 Cyclobenzaprine HCl [Flexeril] 10 mg PO TID #30 tablet 10/13/14 Fluticasone/Salmeterol [Advair Hfa 45-21 Mcg Inhaler] 1 inh PO DAILY 10/13/14 Montelukast Na [Singulair -] 10 mg PO DAILY 10/13/14 Multivitamins [Multivit ([facility] Formulary)] 1 tab PO DAILY 10/13/14 Omeprazole [Prilosec] 20 mg PO DAILY 10/13/14 Ibuprofen 800 mg PO TID #21 tablet 12/09/16 Family Disease History - Family Disease History Family History: Unremarkable Review of Systems - Review of Systems Constitutional: reports: No Symptoms Eyes: reports: No Symptoms HENT: reports: No Symptoms Neck: reports: No Symptoms Cardiovascular: reports: No Symptoms Respiratory: reports: No Symptoms Gastrointestinal: reports: No Symptoms Genitourinary: reports: No Symptoms Breasts: reports: No Symptoms Reported Musculoskeletal: reports: Joint Pain Integumentary: reports: No Symptoms Neurological: reports: No Symptoms Endocrine: reports: No Symptoms Hematology/Lymphatic: reports: No Symptoms Psychiatric: reports: No Symptoms Physical Exam Vital Signs: Vital Signs Temperature 98 F 12/11/16 10:00 Pulse Rate 59 L 12/11/16 10:00 Respiratory Rate 20 12/11/16 10:00 Blood Pressure 121/68 12/11/16 10:00 O2 Sat by Pulse Oximetry (%) 99 12/10/16 21:00 Constitutional: Yes: Well Nourished, No Distress, Calm HENT: Yes: Atraumatic, Normocephalic Musculoskeletal: Yes: Other (Left knee: No open wounds, no erythema, edema or ecchymosis. No sign of infection. There is tenderness over the lateral joint space. No other areas of tenderness. ROM of the knee is -10 degrees to 110 degrees. Smooth ROM of the knee. Pain with mcmurrays test laterally. negative sanjay's test. LCL and MCL stable. NVID.) Labs: CBC, BMP 12/10/16 04:55 12/10/16 04:55 Imaging - Results X-ray: Report Reviewed, Image Reviewed (No fracture/dislocation) Assessment/Plan #1 Left knee sprain, possible meniscus injury -Discussed today's findings and treatment options with the patient. I have recommended an MRI. He is unable to ambulate comfortably with the knee immoblizer but was able to walk with a walker this morning. He may obtain the MRI as an outpatient. I have placed him into a MOISSE wrap for the knee for support. -Pain control -F/u with orthopedics as outpatient. May be discharged from orthopedic standpoint as long as safe when ambulating.
--- NOTE | 2016-12-11 13:07 | PN ---
Progress Note (short form) - Note Progress Note: Still with some discomfort in the Right knee. Ortho consult noted. No CP or SOB. Intake & Output 12/08/16 12/09/16 12/10/16 12/11/16 23:59 23:59 23:59 23:59 Weight 195 lb 175 lb 1.6 oz Last Vital Signs Temp Pulse Resp BP Pulse Ox 98 F 59 L 20 121/68 99 12/11/16 10:00 12/11/16 10:00 12/11/16 10:00 12/11/16 10:00 12/10/16 21:00 Active Medications Acetaminophen (Tylenol -) 325 mg PO Q6H PRN PRN Reason: PAIN Last Admin: 12/11/16 11:16 Dose: 325 mg Albuterol Sulfate (Ventolin 0.083% Nebulizer Soln -) 1 amp NEB Q8H PRN PRN Reason: SHORT OF BREATH/WHEEZING Celecoxib (Celebrex -) 100 mg PO BID [facility] Cyclobenzaprine HCl (Flexeril -) 10 mg PO TID [facility] Last Admin: 12/11/16 06:17 Dose: 10 mg Heparin Sodium (Porcine) (Heparin -) 5,000 unit SQ Q8H-IV JERI Last Admin: 12/11/16 11:18 Dose: 5,000 unit Montelukast Sodium (Singulair -) 10 mg PO DAILY [facility] Last Admin: 12/11/16 11:18 Dose: 10 mg Multivitamins/Minerals/Vitamin C (Tab-A-Vit -) 1 tab PO DAILY [facility] Last Admin: 12/11/16 11:17 Dose: 1 tab Non-Formulary Medication (Fluticasone/Salmeterol [Advair Hfa 45-21 Mcg Inhaler] ) 1 inh PO DAILY [facility] Oxycodone HCl (Roxicodone -) 5 mg PO Q6H PRN PRN Reason: PAIN Last Admin: 12/11/16 11:18 Dose: 5 mg Pantoprazole Sodium (Protonix -) 20 mg PO BID JERI Last Admin: 12/11/16 11:18 Dose: 20 mg GENERAL: Awake, alert, and fully oriented, NAD HEAD: Normal with no signs of trauma. EYES: EOM intact, no pallor or icterus. EARS, NOSE, THROAT: Ears normal. Moist mucous membranes. NECK: Supple. LUNGS: Clear. No wheezes, and no crackles. No accessory muscle use. HEART: Regular rate and rhythm, normal S1 and S2 with soft systolic murmur. ABDOMEN: Soft, nontender, not distended, normoactive bowel sounds, no guarding, no rebound, no masses. No hepatomegaly or splenomegaly. MUSCULOSKELETAL: Normal range of motion at all joints. No bony deformities or tenderness. No CVA tenderness. UPPER EXTREMITIES: 2+ pulses, warm, well-perfused. No cyanosis. No clubbing. No peripheral edema. RIGHT LOWER EXTREMITY: 2+ pulses, warm, well-perfused. No calf tenderness. No peripheral edema. LEFT LOWER EXTREMITY: No rashes ; no erythema or swelling of the left knee; no tenderness on palpation, ROM limited- pain during flexion. NEUROLOGICAL: Non-focal, Normal speech- occasional stuttering. Gait not observed. PSYCHIATRIC: Cooperative. Good eye contact. Appropriate mood and affect. SKIN: Warm, dry, normal turgor, no rashes or lesions noted, normal capillary refill. Laboratory Results - last 24 hr 12/10/16 12:00 Creatine Kinase 295 Creatine Kinase Index 0.3 CK-MB (CK-2) < 1.000 Troponin I < 0.02 IMP: Asymptomatic Bradycardia -> (?) related to Flexeril Asthma Afia Ataxia GERD PLAN: O2 as needed Pain control PO as tolerated D/C planning Dr Sterling
[2016-12-11] MEDS ORDERED: ALBUTEROL SO4 0.083% IH SOL 2.5 MG/3 ML VIAL.NEB. NEB PRN (17:48)
[2016-12-11] MEDS: PATIENT'S OWN MEDICATION (NON-FORMULARY) (Fluticasone/Salmeterol [Advair Hfa 45-21 Mcg Inh PO SCH (18:33)
[2016-12-11] MEDS: PANTOPRAZOLE 20 MG TABLET (FP) PO SCH (22:20)
[2016-12-11] MEDS: CELECOXIB 100 MG CAPSULE PO SCH (22:48)
[2016-12-12 06:02] VITALS: BP 121/71; PULSE 52; TEMP 97.9
[2016-12-12] MEDS: CYCLOBENZAPRINE HCL 10 MG TABLET (FP) PO SCH (06:10)
[2016-12-12] MEDS: HEPARIN NA (PORCINE) 5,000 UNITS/ML 1ML VIAL SQ SCH (06:10)
--- NOTE | 2016-12-12 07:10 | PN ---
Physical Exam: SUBJECTIVE: Patient seen and examined He had his MRI yesterday Pain much improved He feels that he can ambulate safely today with a cane He wants to go home and is confident that he can use either the cane or the rolling walker OBJECTIVE: Vital Signs Period Temp Pulse Resp BP Sys/Kahn Pulse Ox Last 24 Hr 97.7 F-98.2 F 52-59 18-20 113-122/62-76 99-99 Well appearing Heart RRR Lungs CTAB Abd soft No peripheral edema Active Medications Generic Name Dose Route Start Last Admin Trade Name Freq PRN Reason Stop Dose Admin Acetaminophen 325 mg 12/11/16 17:48 Tylenol - PO Q6H PRN PAIN Albuterol Sulfate 1 amp 12/11/16 17:48 12/11/16 21:35 Ventolin 0.083% Nebulizer Soln - NEB 1 amp Q8H PRN Administration SHORT OF BREATH/WHEEZING Celecoxib 100 mg 12/11/16 22:00 12/11/16 22:48 Celebrex - PO 100 mg BID JERI Administration Cyclobenzaprine HCl 10 mg 12/11/16 22:00 12/12/16 06:10 Flexeril - PO 10 mg TID JERI Administration Heparin Sodium (Porcine) 5,000 unit 12/11/16 22:00 12/12/16 06:10 Heparin - SQ 5,000 unit TID JERI Administration Montelukast Sodium 10 mg 12/12/16 10:00 Singulair - PO DAILY JERI Multivitamins/Minerals/Vitamin C 1 tab 12/12/16 10:00 Tab-A-Vit - PO DAILY JERI Non-Formulary Medication 1 inh 12/12/16 10:00 Fluticasone/Salmeterol [Advair Hfa 45-21 Mcg Inhaler] PO DAILY JERI Oxycodone HCl 5 mg 12/11/16 17:48 Roxicodone - PO Q6H PRN PAIN Pantoprazole Sodium 20 mg 12/11/16 22:00 12/11/16 22:20 Protonix - PO 20 mg BID JERI Administration ASSESSMENT/PLAN: The patient is a 41 year old male with a significant past medical history of Friedrichs ataxia, brain tumor s/p resection, who is HD#4 for knee strain and asymptomatic bradycardia. # Asymptomatic bradycardia Resting hear rate vincent is now in the mid 50's It increases with exertion Likely be due to Friedrichs ataxia and suspect this is baseline TSH was normal TTE was unremarkable Enzymes trended negative Appreciate cardiology input Lyme titers were ordered and the patient is aware that these will need to be followed up # L knee pain Ortho consult appreciated MRI done yesterday and small meniscal tear noted He was provided with a cane yesterday I will write him a prescription for a walker He knows to keep the knee immobilizer in place and to use the rolling walker until he sees orthopedics He will follow up with orthopedics Tuesday # Disposition Anticipate discharge later today Visit type - Emergency Visit Emergency Visit: Yes ED Registration Date: 12/09/16 Care time: The patient presented to the Emergency Department on the above date and was hospitalized for further evaluation of their emergent condition. - New Patient This patient is new to me today: No - Critical Care Critical Care patient: No - Discharge Referral Referred to [facility] Med P.C.: No
[2016-12-12] MEDS ORDERED: PT OWN MED DRAWER 7, Y5N ONE (08:54)
[2016-12-12] MEDS: PANTOPRAZOLE 20 MG TABLET (FP) PO SCH (08:59)
[2016-12-12] MEDS: CELECOXIB 100 MG CAPSULE PO SCH (09:00)
[2016-12-12] MEDS ORDERED: MONTELUKAST NA 10 MG TABLET PO SCH (10:00)
[2016-12-12] MEDS ORDERED: MULTIVITAMINS (DAILY MVI) TABLET (FP) PO SCH (10:00)
[2016-12-12] MEDS ORDERED: PATIENT'S OWN MEDICATION (NON-FORMULARY) (Fluticasone/Salmeterol [Advair Hfa 45-21 Mcg Inh PO SCH (10:00)
--- NOTE | 2016-12-13 11:46 | DS ---
Physical Exam: HOSPITAL COURSE: Date of Admission:12/09/16 The patient is a 41 year old male w/ PMH of Afia ataxia, Asthma, Benign brain tumor s/p resection and acid reflux who presented to the ED with the chief complaint of left knee pain. Patient was walking on flat surface when he felt a pop then pain in his knee which restricted him from walking. X-ray of the knee was normal. Patient was admitted for observation since he could not walk on crutches 2/2 his ataxia. Bradycardia was incidentally noted and patient was transferred to inpatient. Dr. Jaramillo from cardiology was consulted. Dr. Serrano from orthopedic surgery was consulted. He recommended an MRI and outpatient ortho follow up. MRI showed a torn meniscus. The patients pain was controlled with percocet. He was discharged with instructions to follow up with his PCP and with Dr. Gonzales, an orthopedist who accepts his insurance, within one week of discharge. He was also instructed to follow up with his shipper , Dr. Looney, within one week. He was sent home on celebrex, ibuprofen, flexeril with instructions on how to take each medication. He was also prescribed a walker to help him ambulate. He was instructed to call his doctor or return to the ER if his symptoms worsened. Date of Discharge: 12/13/16 Minutes to complete discharge: 20 Discharge Summary Reason For Visit: STRAIN OF KNEE Condition: Good - Instructions Diet, Activity, Other Instructions: You were admitted for an injury to your knee as well as a slow heart rate. Please resume all of your home medications. Your x-ray was negative for broken bones. An MRI was done and it shows that you have a small tear in a ligament in your knee. Keep the knee elevated and place ice on the knee to reduce swelling. Take Celebrex as prescribed for mild pain and Percoet for sever pain. Make sure you also take your acid blocking medication (Omeprazole) as the celebrex can case stomach damage. Keep the knee in the immobilizer and use the rolling walker to walk at all times. You need to see orthopedics as soon as possible. Dr. Gonzales does take Medicaid. Call his office tomorrow to schedule an appointment. Please follow up with your primary care doctor within one week of discharge. You should also follow up with your heart doctor, Dr. Looney, about your slow heart rate. Make sure one of your doctors follows the results of the Lyme disease test that we sent. Return to the ED if you have worsening pain, weakness, numbness or tingling, or any changes in your symptoms. Referrals: Darek Grande MD [Staff Physician] - (Call Tuesday Bring the MRI report that I printed for you ) Disposition: HOME - Home Medications Comprehensive Discharge Medication List: Ambulatory Orders Albuterol Sulfate [Proair Hfa -] 1 - 2 inh PO TID 10/13/14 Cyclobenzaprine HCl [Flexeril] 10 mg PO TID #30 tablet 10/13/14 Fluticasone/Salmeterol [Advair Hfa 45-21 Mcg Inhaler] 1 inh PO DAILY 10/13/14 Montelukast Na [Singulair -] 10 mg PO DAILY 10/13/14 Multivitamins [Multivit ([facility] Formulary)] 1 tab PO DAILY 10/13/14 Omeprazole [Prilosec] 20 mg PO DAILY 10/13/14 Ibuprofen 800 mg PO TID #21 tablet 12/09/16 Celecoxib [Celebrex] 100 mg PO BID #10 capsule 12/12/16 Omeprazole 20 mg PO DAILY #30 capsule. 12/12/16 Oxycodone HCl [Roxicodone -] 5 mg PO Q6H PRN #20 tablet MDD 6 12/12/16 Walker [Ultra-Light Rollator] 1 each MC ONCE #1 each 12/12/16 Problem List - Problems (1) Strain of knee Code(s): S86.919A - STRAIN OF UNSP MUSC/TEND AT LOWER LEG LEVEL, UNSP LEG, INIT Qualifiers: Encounter type: initial encounter Laterality: left Qualified Code(s ): S86.912A - Strain of unspecified muscle(s) and tendon(s) at lower leg level, left leg, initial encounter (2) Asthma Code(s): J45.909 - UNSPECIFIED ASTHMA, UNCOMPLICATED (3) Bradycardia Code(s): R00.1 - BRADYCARDIA, UNSPECIFIED (4) Paraparesis of both lower limbs Code(s): G82.20 - PARAPLEGIA, UNSPECIFIED (5) Friedreich ataxia Code(s): G11.1 - EARLY-ONSET CEREBELLAR ATAXIA (6) GERD (gastroesophageal reflux disease) Code(s): K21.9 - GASTRO-ESOPHAGEAL REFLUX DISEASE WITHOUT ESOPHAGITIS This patient is new to me today: No Emergency Visit: Yes ED Registration Date: 12/09/16 Care time: The patient presented to the Emergency Department on the above date and was hospitalized for further evaluation of their emergent condition. Critical Care patient: No - Discharge Referral Referred to [facility] Med P.C.: No
--- NOTE | 2016-12-13 16:57 | EKG ---
Test Reason : Blood Pressure : / mmHG Vent. Rate : 049 BPM Atrial Rate : 049 BPM P-R Int : 142 ms QRS Dur : 092 ms QT Int : 416 ms P-R-T Axes : 067 061 046 degrees QTc Int : 375 ms SINUS BRADYCARDIA OTHERWISE NORMAL ECG WHEN COMPARED WITH ECG OF 10-DEC-2016 04:19, NO SIGNIFICANT CHANGE WAS FOUND Confirmed by NEYMAR CHANDLER MD ([id number]) on 12/13/2016 4:57:39 PM [facility] Confirmed By:NEYMAR CHANDLER MD
== END 2016-12-12 10:48 | disposition home or self-care (01) | DRG 351 ==
LOC: JERFT 18:00 → JER 18:00 → JERBED 23:55 → UNDOADMOB 23:58 → JERBED 23:58 → J5S 12-10 02:49 → OBSVTOIN 12-10 05:47 → INTOOBSV 12-10 05:47 → JICU 12-10 07:02 → J4W 12-10 14:42 → J6S 12-11 18:17
PROVIDERS: ADMIT Internal Medicine; ATTEND Internal Medicine
DX: S83.8X2A Sprain of other specified parts of left knee, initial encounter (principal); J45.909 Unspecified asthma, uncomplicated; K21.9 Gastro-esophageal reflux disease without esophagitis; Z87.891 Personal history of nicotine dependence; R00.1 Bradycardia, unspecified; G82.20 Paraplegia, unspecified; X58.XXXA Exposure to other specified factors, initial encounter; Y93.9 Activity, unspecified; Z88.0 Allergy status to penicillin; Z91.013 Allergy to seafood; Y92.89 Other specified places as the place of occurrence of the external cause; Y99.8 Other external cause status
CPT/HCPCS: 36415; 71010-TC; 73562-TC-LT; 73718-LT; 80048; 80053; 82553; 83036; 83735; 84100; 84443; 84484; 85025; 85027; 90688; 93005; 93010; 93306-TC; 94640; 97116-GP; 97161-GP; 99284-25; G0008; G0378; J1644

== ENCOUNTER 2020-05-31 13:39 | Emergency (ER) | payer OTHER ==
[2020-05-31 13:59] VITALS: BP 116/65; PULSE 61; TEMP 97.8; BMI 26.6
== END 2020-05-31 14:45 | disposition home or self-care (01) ==
LOC: JER 13:39
DX: R05 Cough (principal); M79.10 Myalgia, unspecified site
CPT/HCPCS: 99284-25; C9803; U0003